=== PATIENT | female | born 1990 | race Hispanic/Latino ===

== ENCOUNTER 2025-03-08 22:02 | Emergency (ER) | payer BC, SELFPAY ==
[~2025-03-08 22:02] MED LIST: Iopamidol-370 76% 500 ML MDV (1 ML CHARGE) ONE
[2025-03-08 23:28] LABS: #Basophils 0.05 10x3/uL (0.0-0.2); #Eosinophils 0.24 10x3/uL (0.0-0.7); #Monocytes 0.57 10x3/uL (0.11-0.59); #Neutrophils 6.70 10x3/uL (1.40-6.50); %Basophils 0.5 % (0.0-1.0); %Eosinophils 2.3 % (0.0-10.0); %Lymphocytes 26.7 % (21.0-51.0); %Monocytes 5.5 % (0.0-10.0); %Neutrophils 64.7 % (42.0-75.0); Hematocrit 44.6 % (36.0-47.0); Hemoglobin 14.4 g/dL (12.0-16.0); Mean Corpuscular Hemoglobin 28.2 pg (27.0-31.0); Mean Corpuscular Volume 87.3 fL (78.0-98.0); Platelet Count 329 10x3/uL (130-400); Red Blood Cell (RBC) Count 5.11 mill/uL (4.20-5.40); White Blood Cell (WBC) Count 10.35 10x3/uL (4.8-10.8)
[2025-03-08 23:38] LABS: BHCG - Serum Negative (NEGATIVE); Pregs Control Background? CLEAR/WHITE (CLR/WHITE); Pregs Control Bar Appear? YES (CONTROL BAR)
[2025-03-08 23:42] LABS: ALT (SGPT) 55 U/L (Less than 34); AST (SGOT) 49 U/L (11-34); Albumin 4.2 g/dL (3.1-4.5); Alkaline Phosphatase 63 U/L (40-110); Anion Gap 15 mmol/L (10-20); BUN (Urea Nitrogen) 10 mg/dL (7.0-18.7); Bilirubin, Total 0.7 mg/dL (0.3-1.2); Calc. Creatinine Clearance 0 mL/min (70-130); Calcium 9.3 mg/dL (7.8-10.44); Carbon Dioxide 21 mmol/L (22-29); Chloride 105 mmol/L (98-107); Globulin 3.6 g/dL (2.4-3.5); Glucose 101 mg/dL (70-105); Lipase 28 U/L (8-78); Potassium 3.9 mmol/L (3.5-5.1); Sodium 137 mmol/L (136-145)
[2025-03-09 00:06] LABS: Pregnancy Test - Urine (BHCG) Negative (Negative); Pregu Control Background? CLEAR/WHITE (CLR/WHITE); Pregu Control Bar Appear? YES (CONTROL BAR)
[2025-03-09 00:14] LABS: CAUTI Indications for Culture Pelvic or flank pain; Glucose, Urine (Dipstick) Normal (Negative); Leukocyte Negative Leu/uL (Negative); Protein, Urine (Dipstick) Negative (Neg-Trace); RBC/HPF 0-3 HPF (0-3); Specific Gravity, Urine 1.006 (1.002-1.036); WBC/HPF 0-3 HPF (0-3)
[2025-03-09 00:16] LABS: Bacteria/HPF 1+ HPF (None Seen)
[2025-03-09 00:17] LABS: Urine Culture Reflex No No
[2025-03-09] MEDS ORDERED: Amoxicillin/Potassium Clav 875 MG TAB ONE (01:40)
== END 2025-03-09 01:44 | disposition home or self-care (01) ==
LOC: ERS 22:02
DX: K76.0 Fatty (change of) liver, not elsewhere classified (principal)
CPT/HCPCS: 74177; 80053; 81001; 81025; 83690; 84703; 85025; 96360

== ENCOUNTER 2025-03-11 17:15 | Emergency (ER) | payer OTHER, BC ==
[2025-03-11] MEDS ORDERED: Ibuprofen 800 MG TAB ONE (17:59)
== END 2025-03-11 19:55 | disposition home or self-care (01) ==
LOC: ERS 17:15
DX: S09.90XA Unspecified injury of head, initial encounter (principal); M79.10 Myalgia, unspecified site; V89.2XXA Person injured in unspecified motor-vehicle accident, traffic, initial encounter
CPT/HCPCS: 70450